=== PATIENT | female | born 1985 ===

== ENCOUNTER 2021-10-06 12:00 | Emergency (ER) | payer MEDICARE, MEDICAID, SELFPAY ==
[2021-10-06 12:12] VITALS: BP 103/76; PULSE 82; RESP 16; TEMP 36.7; O2SAT 99
--- NOTE | 2021-10-06 12:15 | RT.EKG_ITS ---
APPROVED REPORT Exam: Resting ECG Reason for Exam: is for [facility] Patient Location: E HR:67 bpm ECG Measurements Heart Rate 67 AXIS DC 121 P 55 QRSd 92 QRS 85 QT 458 T 74 QTc 485 Conclusion Sinus rhythm...normal P axis, V-rate 60- 99 Anteroseptal infarct, age indeterminate...Q >35mS, T neg, V1-V2. Sinus. Normal axis. No STEMI. I have reviewed and interpreted ECG and agree with software generated interpretation.
--- NOTE | 2021-10-06 12:54 | W.ED.GENAD ---
Discharge Plan Disposition Patient Disposition: HOME Condition: Stable Discharge Details Clinical Impression: Opiate dependence Primary Care Provider: Unknown,Unknown ED Provider: Isabel Lock Discharge Instructions Additional Instructions: Please follow-up with the [facility] clinic for further outpatient management of your methadone Return to the emergency department should you have new or worsening complaints Discharge Data Discharge Date/Time-TO BE ENTERED AT DEPARTURE: 10/06/21 13:03 Medical Decision Making Patient EKG shows mild QTC prolongation with possible anteroseptal prior infarct Patient is completely asymptomatic I did call the [facility] clinic and spoke with Dr. Scott depression patient was sent to this emergency department for an EKG As the patient does not wish to be evaluated for medical purposes, an EKG was performed and faxed to the methadone clinic at Dr. Scott's request. Again patient is completely asymptomatic, she is alert, oriented, of decisional capacity and I believe further outpatient treatment with methadone to the discretion of the [facility] clinic at this time Dr. Scott made aware and states that patient was sent to the emergency department in the ER HPI General Date/Time Provider Initiated Documentation: 10/06/21 12:24. HPI Narrative: This 36-year-old female presents for report of needing EKG for the [facility] clinic. She denies any chest pain or shortness of breath. She denies any dizziness or weakness. She states that she has a history of polysubstance abuse and taken several doses of methadone. She denies any current medical complaints. Received her dose of methadone today reportedly. Denies chance of . General Stated Complaint: GenMedical COY: 4 Review of Systems Narrative: Review of systems obtained x3 and negative aside from medication HPI PFSH All Active Problems (Updated 10/06/21 @ 12:58 by RASHAWN Kraus) Opiate dependence (Acute) Social History Smoking risk assessment performed?: No Exam Const General: cooperative, comfortable and no acute distress Eyes Pupils: PERRL Resp Effort & Inspection: normal respiratory effort Cardio Rate: regular rate Neuro General: patient alert Course Vital Signs Vital signs: Vital Signs Temperature 36.7 C 10/06/21 12:12 Pulse 82 10/06/21 12:12 Respiratory Rate 16 10/06/21 12:12 Blood Pressure 103/76 10/06/21 12:12 Pulse Oximetry 99 10/06/21 12:12 Temperature 36.7 C 10/06/21 12:12 Temperature Source Skin 10/06/21 12:12 Pulse 82 10/06/21 12:12 Respiratory Rate 16 10/06/21 12:12 Blood Pressure 103/76 10/06/21 12:12 Blood Pressure Position Sitting 10/06/21 12:12 Pulse Oximetry 99 10/06/21 12:12 Oxygen Delivery Method Room Air 10/06/21 12:12 Oxygen Flow Rate 0 10/06/21 12:12 Pain Level 0 10/06/21 12:12
[2021-10-06 13:08] VITALS: RESP 16
== END 2021-10-06 13:03 | disposition home or self-care (01) ==
PROVIDERS: Emergency Provider Physician Assistant
DX: F11.20 Opioid dependence, uncomplicated (principal); R94.31 Abnormal electrocardiogram [ECG] [EKG]
CPT/HCPCS: 93005; 99283; 93010; 99282